=== PATIENT | male | born 1955 | race Caucasian/White ===

== ENCOUNTER 2021-09-08 09:44 | Day surgery (SDC) | payer MEDICARE ==
[~2021-09-08] VITALS: Ht 172.7 cm; Wt 91.6 kg
[~2021-09-08 09:44] MED LIST: AMLO5; Advil200 M1; Aspirin EC325 MG; CYCL10; HYDACE5 PO; HYDR-86; LEVSOD100; LEVSOD112 PO; LOSA50; LOSA50 PO; LOSHYD100; LOVA20 PO; METO25ER; NAPR220; NAPR500 PO; RXCYCL10 PO; TETR250 PO; TETRACYCLINE PO
--- NOTE | 2021-09-08 10:46 | NUR ---
09/08/21 1046 Janette Sommer 1ST IV IN RIGHT WRIST INFILTRATED. 2ND IV ATTEMPT IN LEFT HAND BLEW. 3RD IV START IN RIGHT AC WAS A SUCCESSFUL IV START.
== END 2021-09-08 12:14 | disposition home or self-care (01) ==
LOC: ORSCSDS 09:44
PROVIDERS: Internal Medicine Gastroenterology
PROC: 0DBL8ZX Excision of Transverse Colon, Via Natural or Artificial Opening Endoscopic, Diagnostic (ICD-10-PCS; principal; 2021-09-08 11:00)
PROC: 0DBN8ZX Excision of Sigmoid Colon, Via Natural or Artificial Opening Endoscopic, Diagnostic (ICD-10-PCS; principal; 2021-09-08 11:00)
DX: Z12.11 Encounter for screening for malignant neoplasm of colon (principal); Z86.010 Personal history of colon polyps; D12.3 Benign neoplasm of transverse colon; D12.5 Benign neoplasm of sigmoid colon; F17.210 Nicotine dependence, cigarettes, uncomplicated; E03.9 Hypothyroidism, unspecified; J44.9 Chronic obstructive pulmonary disease, unspecified; E78.5 Hyperlipidemia, unspecified; I10 Essential (primary) hypertension; Z79.899 Other long term (current) drug therapy; Z79.82 Long term (current) use of aspirin
CPT/HCPCS: 88305; J2704; J7120